=== PATIENT | female | born 1950 | race Caucasian/White ===

== ENCOUNTER 2018-07-14 23:07 | Emergency (ER) | payer MEDICARE ==
[2018-07-14 23:35] LABS: Bilirubin Negative (Negative); Blood, Urine Large (Negative); Clarity CLEAR (Clear); Glucose, Urine (Dipstick) Negative (Negative); Leukocyte Large (Negative); Nitrite Negative (Negative); Protein, Urine (Dipstick) Trace mg/dL (Neg-Trace); Specific Gravity, Urine 1.003 (1.002-1.036); Urobilinogen 0.2 mg/dL (0.2-1.0)
[2018-07-14 23:38] LABS: Bacteria/HPF None Seen HPF (None Seen); Hyaline Casts/LPF 0-3 HYALINE CAST LPF (0-3 Hyaline); Pathc Cast-AUWi Flag 0.29 (0-2.49); Squamous Epithelial 0-3 HPF (0-3); WBC/HPF 21-50 HPF (0-3)
[2018-07-14 23:40] LABS: Oval Fat Bodies/HPF None Seen HPF (None Seen); Renal Epithelial None Seen HPF (0-3); Sperm/HPF None Seen HPF (None Seen); Transitional Epithelial NONE SEEN HPF (0-3); Trichomonas/HPF None Seen HPF (None Seen); Yeast-All Forms None Seen HPF (None Seen)
[2018-07-14] MEDS ORDERED: Phenazopyridine HCl 97.5 MG TABLET PO SCH (23:45)
[2018-07-15] MEDS ORDERED: Cephalexin 250 MG CAP ONE (00:14)
== END 2018-07-15 00:17 | disposition home or self-care (01) ==
LOC: ERS 23:07
DX: N39.0 Urinary tract infection, site not specified (principal); E78.00 Pure hypercholesterolemia, unspecified; Z79.899 Other long term (current) drug therapy
CPT/HCPCS: 81003; 81015; 87086; 99284

== ENCOUNTER 2019-08-05 14:04 | Outpatient (CLI) | payer MEDICARE ==
--- NOTE | 2019-08-05 15:01 | BD ---
DEXA BONE MINERAL DENSITY STUDY: HISTORY: Age-related osteoporosis without current pathologic fracture. COMPARISON: Bone mineral density study from 2017. FINDINGS: Lumbar Spine: BMD (g/cm2) L1 0.957 T-Score: -0.3 1.4 L2 0.974 T-Score: -0.5 1.4 L3 1.132 T-Score: 0.4 2.5 L4 1.179 T-Score: 1.1 3.2 L1-L4 1.066 T-Score: 0.2 2.1 Change from the comparison examination is +0.5%. Femoral Neck: 0.699 T-Score: -1.4 -0.3 Total Femur: 0.932 T-Score: -0.1 1.1 Change from the comparison examination is +10.7%. WHO classification: Osteopenia. TEN-YEAR FRACTURE RISK: Major osteoporotic fracture 9.8% and hip fracture 0.8%. Impression: Osteopenia with fracture risk as above. POS: OFF
--- NOTE | 2019-08-05 15:03 | RAD ---
RIGHT KNEE TWO VIEWS: HISTORY: Arthritis. FINDINGS: Standing views. Mild joint space narrowing, medial compartment. Mild tricompartmental osteophytosis. Chondrocalcinosis. No acute fracture, dislocation or aggressive osseous erosions. IMPRESSION: Mild osteoarthritic changes right knee. POS: TPC
--- NOTE | 2019-08-05 15:05 | RAD ---
LEFT KNEE 2 VIEWS: HISTORY: Left knee pain. FINDINGS: Standing views. Mild joint space narrowing medial compartment with mild osteophytosis of the medial and patellofemoral compartments. Chondrocalcinosis. No acute fracture, dislocation, or fluid disten tion of the suprapatellar bursa. IMPRESSION: Mild osteoarthritic changes. POS: TPC
== END 2019-08-05 14:05 | disposition home or self-care (01) ==
LOC: BICMAMMO 14:04
PROVIDERS: ATTEND Internal Medicine Rheumatology
DX: M81.0 Age-related osteoporosis without current pathological fracture (principal); M17.0 Bilateral primary osteoarthritis of knee; M85.89 Other specified disorders of bone density and structure, multiple sites
CPT/HCPCS: 77080

== ENCOUNTER 2019-08-18 11:59 | Outpatient (CLI) | payer MEDICARE ==
--- NOTE | 2019-08-18 13:27 | MMO ---
Bilateral MAMMO Bilat Screen DDI+TING. CLINICAL HISTORY: Patient is 68 years old and is seen for screening. The patient has no family history of breast cancer. The patient has no personal history of cancer. VIEWS: The views performed were: bilateral craniocaudal with tomosynthesis and bilateral mediolateral oblique with tomosynthesis. FILMS COMPARED: The present examination has been compared to prior imaging studies performed at [facility] on 05/28/2017, and at [facility] on 08/30/2011. This study has been interpreted with the assistance of computer-aided detection. MAMMOGRAM FINDINGS: There are scattered fibroglandular densities. There are no suspicious masses, calcifications or areas of architectural distortion. There are benign appearing calcifications in both breasts. There are no suspicious masses, suspicious calcifications, or new areas of architectural distortion. IMPRESSION: THERE IS NO MAMMOGRAPHIC EVIDENCE OF MALIGNANCY. A ROUTINE FOLLOW-UP MAMMOGRAM IN 1 YEAR IS RECOMMENDED. THE RESULTS OF THIS EXAM WERE SENT TO THE PATIENT. ACR BI-RADS Category 2 - Benign finding MAMMOGRAPHY NOTE: 1. A negative mammogram report should not delay a biopsy if a dominant of clinically suspicious mass is present. 2. Approximately 10% to 15% of breast cancers are not detected by mammography. 3. Adenosis and dense breasts may obscure an underlying neoplasm. Reported by: JAIRO OSBORNE MD Electonically Signed: [id number]
== END 2019-08-18 12:00 | disposition home or self-care (01) ==
LOC: BICMAMMO 11:59
PROVIDERS: ATTEND Family Medicine
DX: Z12.31 Encounter for screening mammogram for malignant neoplasm of breast (principal)
CPT/HCPCS: 77063; 77067

== ENCOUNTER 2020-08-21 08:15 | Outpatient (CLI) | payer MEDICARE ==
--- NOTE | 2020-08-21 10:09 | MRI ---
MRI Lower Ext Jt Lt WO Con History: Primary osteoarthritis Comparison: Radiograph August 05, 2019 Findings: Medial meniscus: Radial oblique tear posterior horn near the root approximately 7 mm from t he footprint. There is also an undersurface flap tear medial meniscal body with gutter extrusion 2-3 mm. Mild loss of hoop stress. Lateral meniscus: Horizontal cleavage tear throughout the lateral meniscal body extending from the fr ee edge to the peripheral zone. ACL, PCL, MCL and LCL are all intact. Extensor mechanism: The quadriceps tendon, patella and patellar tendon are all intact. The tibial tub erosity-trochlear groove distance measures 2.1 cm. Cartilage: Patellofemoral compartment: 50-75% chondral fissures of the central trochlea. Chondral fraying of the medial patellar facet. Medial compartment: 50-60% chondral fissuring and fraying throughout the weightbearing surface medial femoral condyle. Lateral compartment: 25-30% chondral fraying throughout the lateral tibial plateau. Bones: No fracture. No malalignment. No stress changes. Moderate tricompartmental osteophyte formation. Muscles: Muscle signal and bulk is normal. Impression: 1. Two separate tears of the medial meniscus including a radial oblique tear posterior horn near the root along with undersurface flap tear of the medial meniscal body with 2-3 mm gutter extrusion and loss of hoop stress. 2. Horizontal cleavage tear throughout the lateral meniscal body. 3. Moderate tricompartmental osteophyte formation. 4. 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
--- NOTE | 2020-08-21 10:52 | MRI ---
MRI Lower Ext Jt Rt WO Con History: Primary osteoarthritis Comparison: Knee radiograph August 05, 2019 Findings: Medial meniscus: Undersurface flap tear throughout the body and posterior horn extending to the root with 4 mm gutter extrusion and loss of hoop stress. Lateral meniscus: Horizontal cleavage tear posterior horn body junction. ACL, PCL, MCL and LCL are all intact. Extensor mechanism: Quadriceps tendon, patella and patellar tendon are intact. The tibial tuberosity- trochlear groove distance measures 1.8 cm. Cartilage: Patellofemoral compartment: Multifocal 50-75% chondral fissures and fraying throughout the medial and lateral patellar facets as well as the medial trochlea. Medial compartment: New complete cartilage denuding along the weightbearing surface medial femoral co ndyle and medial tibial plateau with high-grade reactive marrow changes. Lateral compartment: 25-50% chondral fissuring throughout the central weightbearing surfaces. Muscles: Muscle signal and bulk is normal. Soft tissues: Moderate popliteal cyst containing debris. Small joint effusion with mild synovitis. Impression: 1. Complex medial meniscal undersurface flap tear throughout the body and posterior horn extending to the root with gutter extrusion, loss of hoop stress, and grade 4 medial compartment chondromalacia. 2. Horizontal cleavage tear lateral meniscal body. 3. Grade 3 patellofemoral compartment chondromalacia. 4. Moderate popliteal cyst containing debris.
== END 2020-08-21 08:16 | disposition home or self-care (01) ==
LOC: BICMRI 08:15
PROVIDERS: ATTEND Internal Medicine Rheumatology
DX: M17.0 Bilateral primary osteoarthritis of knee (principal); S83.249A Other tear of medial meniscus, current injury, unspecified knee, initial encounter; M94.269 Chondromalacia, unspecified knee; M71.20 Synovial cyst of popliteal space [Baker], unspecified knee; S83.289A Other tear of lateral meniscus, current injury, unspecified knee, initial encounter

== ENCOUNTER 2021-02-15 09:22 | Outpatient (CLI) | payer MEDICARE ==
[2021-02-15 10:47] LABS: #Basophils 0.1 10x3/uL (0.0-0.2); #Eosinphils 0.3 10x3/uL (0.0-0.5); #Monocytes 0.6 10x3/uL (0.0-1.1); %Eosinophils 3.5 % (0.0-6.0); %Lymphocytes 24.8 % (18.0-47.0); %Monocytes 7.3 % (0.0-10.0); %Neutrophils 63.1 % (40.0-75.0); Hemoglobin 13.6 g/dL (12.0-15.5); Mean Corpuscular HGB CONC 31.2 g/dL (32.0-36.0); Mean Corpuscular Hemoglobin 29.6 pg (27.0-33.0); Mean Platelet Volume 11.9 fl (7.4-10.4); Platelet Count 211 10x3/uL (150-450); RBC Distribution Width 13.2 % (11.5-14.5); Red Blood Cell (RBC) Count 4.59 10x6/uL (3.90-5.03)
[2021-02-15 11:11] LABS: INR-International Normal Ratio 0.9; Prothrombin Time 10.5 sec (9.5-12.1)
[2021-02-15 11:13] LABS: Anion Gap 12 mmol/L (10-20); BUN (Urea Nitrogen) 15 mg/dL (9.8-20.1); Calc. Creatinine Clearance 0 mL/min (70-130); Calcium 9.7 mg/dL (7.8-10.44); Carbon Dioxide 26 mmol/L (23-31); Chloride 110 mmol/L (98-107); Glucose 93 mg/dL (80-115); Potassium 4.9 mmol/L (3.5-5.1); Sodium 143 mmol/L (136-145)
[2021-02-15 18:44] LABS: SARS-CoV-2 PCR by NAA Not Detected (NotDetected)
== END 2021-02-15 09:23 | disposition home or self-care (01) ==
LOC: LABBT 09:22
PROVIDERS: ATTEND Orthopaedic Surgery
DX: Z01.818 Encounter for other preprocedural examination (principal); Z20.822 Contact with and (suspected) exposure to COVID-19; M17.0 Bilateral primary osteoarthritis of knee
CPT/HCPCS: 80048; 85025; 85610; 87081; 93005; U0003; U0005; 87635; 93010

== ENCOUNTER 2021-02-15 09:30 | Inpatient (IN) | payer MEDICARE ==
[2021-02-16 13:17] VITALS: BMI 32.1
[2021-02-20] MEDS ORDERED: Fentanyl 100 MCG/2 ML VIAL ONE ×5 (06:11→14:28)
[2021-02-20] MEDS ORDERED: Midazolam HCl 2 mg/2 ml Vial ONE ×2 (06:11→06:28)
[2021-02-20] MEDS ORDERED: EPINEPHrine 1 MG/ML AMP ONE (06:33)
[2021-02-20] MEDS ORDERED: Bupivacaine 0.25% HCL 30 ML VIAL ONE (06:33)
[2021-02-20] MEDS ORDERED: Lidocaine 1% w/Epinephrine 1:100K 20 ML VIAL ONE (06:33)
[2021-02-20] MEDS ORDERED: Vancomycin 1 GM/200 ML BAG ONE (06:48)
[2021-02-20] MEDS ORDERED: Vancomycin HCl 500 MG VIAL ONE (06:48)
[2021-02-20] MEDS ORDERED: Sodium Chloride 0.9% 100 ML ONE ×2 (06:49→07:38)
[2021-02-20] MEDS ORDERED: Bupivacaine HCl 0.5%/Epinephrine 1:200,000/PF 30 ml Vial ONE (07:15)
[2021-02-20] MEDS ORDERED: Ondansetron PF 4 MG/2 ML Vial ONE (07:15)
[2021-02-20] MEDS ORDERED: Dexamethasone 20 MG/5 ML VIAL ONE (07:15)
[2021-02-20] MEDS ORDERED: PHENYLEPHRINE-NS 100 MCG/ML 10 ML SYRINGE ONE (07:15)
[2021-02-20] MEDS ORDERED: Ropivacaine 2% HCl/PF (20 MG/10 ML VIAL) ONE (07:15)
[2021-02-20] MEDS ORDERED: PROPOFOL 200 MG/20 ML VIAL ONE (07:15)
[2021-02-20] MEDS ORDERED: Lidocaine 1% PF 5 ML VIAL ONE (07:15)
[2021-02-20] MEDS ORDERED: Tranexamic Acid 1,000 MG/10 ML VIAL ONE (07:38)
[2021-02-20] MEDS ORDERED: Ropivacaine HCl/PF 250 ML in Premix Bag 1 BAG NERVE BLCK SCH (07:45)
[2021-02-20] MEDS ORDERED: Fentanyl 100 MCG/2 ML VIAL IV PRN (07:45)
[2021-02-20] MEDS ORDERED: traMADol HCl 50 MG TAB PO PRN ×2 (07:45→09:18)
[2021-02-20] MEDS ORDERED: Zolpidem Tartrate 5 MG TAB PO PRN ×2 (07:45→09:18)
[2021-02-20] MEDS ORDERED: HYDROcodone/Acetaminophen 10/325 mg Tablet PO PRN ×3 (07:45→09:18)
[2021-02-20] MEDS ORDERED: Ondansetron PF 4 MG/2 ML Vial IVP PRN ×2 (07:45→09:18)
[2021-02-20] MEDS ORDERED: Promethazine HCl 25 MG/ML VIAL IM PRN ×3 (07:45→09:18)
[2021-02-20] MEDS ORDERED: Promethazine HCl 25 MG/ML VIAL SLOW IVP PRN (08:23)
[2021-02-20] MEDS ORDERED: Ondansetron HCl/PF 4 MG/2 ML Vial IVP PRN (08:23)
[2021-02-20] MEDS ORDERED: diphenhydrAMINE 25 MG CAP PO PRN (09:18)
[2021-02-20] MEDS ORDERED: Ketorolac Tromethamine 30 MG/ML VIAL IVP PRN (09:18)
[2021-02-20] MEDS ORDERED: Fentanyl 100 MCG/2 ML VIAL SLOW IVP PRN ×2 (09:18)
[2021-02-20] MEDS ORDERED: Acetaminophen 325 MG TAB PO PRN (09:18)
[2021-02-20] MEDS ORDERED: Aspirin 81 mg Enteric Coated Tablet PO SCH (10:30)
[2021-02-20] MEDS: Ketorolac Tromethamine 30 MG/ML VIAL IVP SCH ×2 (14:49→16:49)
[2021-02-20] MEDS: Sodium Chloride 0.9% 1,000 ML IV SCH ×2 (14:49→16:31)
[2021-02-20] MEDS: CEFAZOLIN 2 GM in Premix Bag 1 BAG IVPB SCH (16:04)
[2021-02-20] MEDS: traMADol HCl 50 MG TAB PO PRN (16:05)
[2021-02-20] MEDS: Aspirin 81 mg Enteric Coated Tablet PO SCH (19:58)
[2021-02-20] MEDS ORDERED: Vancomycin 1.5 GRAM/300 ML BAG 1.5 GM in Premix Bag 1 BAG IVPB SCH (20:00)
[2021-02-20] MEDS ORDERED: Vancomycin HCl 1.5 GM in Sodium Chloride 0.9% 250 ML 300 ML IVPB SCH (20:00)
[2021-02-21] MEDS: Ketorolac Tromethamine 30 MG/ML VIAL IVP SCH ×5 (00:14→23:16)
[2021-02-21] MEDS: CEFAZOLIN 2 GM in Premix Bag 1 BAG IVPB SCH (00:14)
[2021-02-21 06:19] LABS: Hemoglobin 11.6 g/dL (12.0-16.0); Mean Corpuscular HGB CONC 30.9 g/dL (32.0-36.0); Mean Corpuscular Volume 93.7 fL (78.0-98.0); Mean Platelet Volume 9.1 fL (7.4-10.4); Platelet Count 156 thou/uL (130-400); RBC Distribution Width 11.7 % (11.5-14.5); Red Blood Cell (RBC) Count 4.02 mill/uL (4.20-5.40); White Blood Cell (WBC) Count 17.1 thou/uL (4.8-10.8)
[2021-02-21] MEDS: traMADol HCl 50 MG TAB PO PRN ×2 (06:22→23:04)
[2021-02-21] MEDS: Sodium Chloride 0.9% 1,000 ML IV SCH ×2 (07:36→16:03)
[2021-02-21] MEDS: Aspirin 81 mg Enteric Coated Tablet PO SCH ×2 (08:27→20:01)
[2021-02-21] MEDS: Multivitamin W/ Minerals 1 TAB PO SCH (08:27)
[2021-02-21] MEDS: Ferrous Gluconate 324 MG TAB PO SCH ×2 (08:27→18:12)
[2021-02-21] MEDS: Senokot S 8.6-50 MG TAB PO SCH ×2 (08:27→20:01)
[2021-02-22] MEDS: Sodium Chloride 0.9% 1,000 ML IV SCH ×2 (00:25→11:20)
[2021-02-22] MEDS: Ketorolac Tromethamine 30 MG/ML VIAL IVP SCH (06:01)
[2021-02-22] MEDS: traMADol HCl 50 MG TAB PO PRN ×2 (06:02→13:45)
[2021-02-22 06:58] LABS: Hemoglobin 11.8 g/dL (12.0-16.0); Mean Corpuscular HGB CONC 32.7 g/dL (32.0-36.0); Mean Corpuscular Hemoglobin 30.7 pg (27.0-31.0); Mean Corpuscular Volume 94.1 fL (78.0-98.0); Mean Platelet Volume 9.1 fL (7.4-10.4); Platelet Count 148 thou/uL (130-400); RBC Distribution Width 11.9 % (11.5-14.5); Red Blood Cell (RBC) Count 3.85 mill/uL (4.20-5.40); White Blood Cell (WBC) Count 12.6 thou/uL (4.8-10.8)
[2021-02-22 08:03] VITALS: BP 112/74; TEMP 98.3
[2021-02-22] MEDS: Senokot S 8.6-50 MG TAB PO SCH (09:16)
[2021-02-22] MEDS: Aspirin 81 mg Enteric Coated Tablet PO SCH (09:16)
[2021-02-22] MEDS: Ferrous Gluconate 324 MG TAB PO SCH (09:16)
[2021-02-22] MEDS: Multivitamin W/ Minerals 1 TAB PO SCH (09:16)
== END 2021-02-22 14:18 | disposition home or self-care (01) | DRG 470 ==
LOC: SJJU 02-20 05:51 → SURG A 02-20 15:05
PROVIDERS: ADMIT Orthopaedic Surgery; ATTEND Orthopaedic Surgery
PROC: 0SRC0J9 Replacement of Right Knee Joint with Synthetic Substitute, Cemented, Open Approach (ICD-10-PCS; principal; 2021-02-20)
DX: M17.11 Unilateral primary osteoarthritis, right knee (principal); M25.761 Osteophyte, right knee; Z20.822 Contact with and (suspected) exposure to COVID-19; E78.5 Hyperlipidemia, unspecified; J30.2 Other seasonal allergic rhinitis; E66.9 Obesity, unspecified; F17.200 Nicotine dependence, unspecified, uncomplicated; Z90.710 Acquired absence of both cervix and uterus; Z88.2 Allergy status to sulfonamides; Z88.5 Allergy status to narcotic agent; Z68.32 Body mass index [BMI] 32.0-32.9, adult; Z91.041 Radiographic dye allergy status
CPT/HCPCS: 36415; 85027; C1713; C1776; J0171; J0690; J1100; J1885; J2250; J2405; J2704; J2795; J3010; J3370; J3490; S0020

== ENCOUNTER 2023-06-25 07:24 | Outpatient (CLI) | payer MEDICARE | END 2023-06-25 07:25 | disposition home or self-care (01) | LOC: BICMRI 07:24 | PROVIDERS: ATTEND Orthopaedic Surgery | DX: S46.011A Strain of muscle(s) and tendon(s) of the rotator cuff of right shoulder, initial encounter (principal); M25.411 Effusion, right shoulder; M19.011 Primary osteoarthritis, right shoulder; R60.0 Localized edema ==

== ENCOUNTER 2023-08-05 08:06 | Outpatient (CLI) | payer MEDICARE ==
[2023-08-05 09:02] LABS: #Basophils 0.1 10x3/uL (0.0-0.2); #Eosinphils 0.3 10x3/uL (0.0-0.5); #Monocytes 0.6 10x3/uL (0.0-1.1); #Neutrophils 4.8 10x3/uL (1.5-8.4); %Eosinophils 3.4 % (0.0-6.0); %Lymphocytes 24.8 % (18.0-47.0); %Monocytes 8.2 % (0.0-10.0); %Neutrophils 62.5 % (40.0-75.0); Hematocrit 43.3 % (34.9-44.5); Hemoglobin 13.6 g/dL (12.0-15.5); Mean Corpuscular HGB CONC 31.4 g/dL (32.0-36.0); Mean Corpuscular Hemoglobin 29.4 pg (27.0-33.0); Mean Corpuscular Volume 93.7 fl (81.6-98.3); Mean Platelet Volume 11.1 fl (7.4-10.4); Platelet Count 185 10x3/uL (150-450); RBC Distribution Width 12.9 % (11.5-14.5); Red Blood Cell (RBC) Count 4.62 10x6/uL (3.90-5.03); White Blood Cell (WBC) Count 7.7 10x3/uL (3.5-10.5)
[2023-08-05 09:12] LABS: Prothrombin Time 10.3 sec (9.5-12.1)
[2023-08-05 09:15] LABS: Anion Gap 12 mmol/L (10-20); BUN (Urea Nitrogen) 14 mg/dL (9.8-20.1); Calc. Creatinine Clearance 0 mL/min (70-130); Calcium 9.5 mg/dL (7.8-10.44); Carbon Dioxide 26 mmol/L (23-31); Chloride 108 mmol/L (98-107); Estimated GFR 67; Glucose 96 mg/dL (83-110); Sodium 142 mmol/L (136-145)
== END 2023-08-05 08:07 | disposition home or self-care (01) ==
LOC: LABBT 08:06
PROVIDERS: ATTEND Orthopaedic Surgery
DX: Z01.818 Encounter for other preprocedural examination (principal); S46.011A Strain of muscle(s) and tendon(s) of the rotator cuff of right shoulder, initial encounter
CPT/HCPCS: 80048; 85025; 85610; 93005; 93010

== ENCOUNTER 2023-08-07 09:50 | Day surgery (SDC) | payer MEDICARE ==
[2023-08-05 08:37] VITALS: BMI 30.2
[2023-08-07] MEDS ORDERED: Phenylephrine 10 MG/ML VIAL ONE (10:17)
[2023-08-07] MEDS ORDERED: Bupivacaine PF 0.5% 30 ML VIAL ONE (10:17)
[2023-08-07] MEDS ORDERED: Midazolam HCl 2 mg/2 ml Vial ONE (10:17)
[2023-08-07] MEDS ORDERED: fentaNYL 50 mcg/mL 1 mL Vial ONE ×2 (10:17)
[2023-08-07] MEDS ORDERED: EPINEPHrine 1 MG/ML VIAL ONE (10:18)
[2023-08-07] MEDS ORDERED: Lidocaine 1% (PF) 30 ML VIAL ONE (10:18)
[2023-08-07] MEDS ORDERED: CEFAZOLIN 2 GM VIAL ONE (10:24)
[2023-08-07] MEDS ORDERED: Sodium Chloride 0.9% 100 ML ONE (10:25)
[2023-08-07] MEDS ORDERED: PHENYLEPHRINE-NS 100 MCG/ML 10 ML SYRINGE ONE (10:50)
[2023-08-07] MEDS ORDERED: Rocuronium Bromide 10 MG/ML (10ML VIAL) ONE (10:50)
[2023-08-07] MEDS ORDERED: Glycopyrrolate 0.2 MG/ML 5 ML SYRINGE ONE (10:50)
[2023-08-07] MEDS ORDERED: Ondansetron PF 4 MG/2 ML Vial ONE (10:50)
[2023-08-07] MEDS ORDERED: PROPOFOL 200 MG/20 ML VIAL ONE (10:50)
[2023-08-07] MEDS ORDERED: Dexamethasone 20 MG/5 ML VIAL ONE (10:50)
[2023-08-07] MEDS ORDERED: fentaNYL 50 mcg/mL 1 mL Vial SLOW IVP PRN (10:53)
[2023-08-07] MEDS ORDERED: Promethazine HCl 25 MG/ML VIAL IM PRN (11:00)
[2023-08-07] MEDS ORDERED: Ropivacaine 0.2% 550 ML 550 ML NERVE BLCK SCH (11:00)
[2023-08-07] MEDS ORDERED: traMADol HCl 50 MG TAB PO PRN ×2 (11:00)
[2023-08-07] MEDS ORDERED: Ondansetron PF 4 MG/2 ML Vial IVP PRN (11:00)
[2023-08-07] MEDS ORDERED: Zolpidem Tartrate 5 MG TAB PO PRN (11:00)
[2023-08-07] MEDS ORDERED: Ketorolac Tromethamine 30 MG/ML VIAL IVP SCH (12:00)
[2023-08-07] MEDS ORDERED: SUGAMMADEX SODIUM 200 MG/2 ML VIAL ONE (12:28)
== END 2023-08-07 14:50 | disposition home or self-care (01) ==
LOC: SDC 09:50
PROVIDERS: ATTEND Orthopaedic Surgery
PROC: 0LB14ZZ Excision of Right Shoulder Tendon, Percutaneous Endoscopic Approach (ICD-10-PCS; principal; 2023-08-07)
PROC: 0LN10ZZ Release Right Shoulder Tendon, Open Approach (ICD-10-PCS; 2023-08-07)
DX: S46.011A Strain of muscle(s) and tendon(s) of the rotator cuff of right shoulder, initial encounter (principal); S43.491A Other sprain of right shoulder joint, initial encounter; S46.291A Other injury of muscle, fascia and tendon of other parts of biceps, right arm, initial encounter; W19.XXXA Unspecified fall, initial encounter; Z90.710 Acquired absence of both cervix and uterus; Z96.651 Presence of right artificial knee joint; Z88.5 Allergy status to narcotic agent; Z88.2 Allergy status to sulfonamides; Z91.041 Radiographic dye allergy status
CPT/HCPCS: 23405; 29827; A4306; J0171; J3010; C1713; J2001; J2250; J2370; J2795; J3490; S0020